=== PATIENT | male | born 1960 | race Caucasian/White ===

== ENCOUNTER 2021-07-17 12:48 | Emergency (ER) | payer MEDICAID ==
[~2021-07-17] VITALS: Ht 172.7 cm; Wt 106.8 kg
[2021-07-17 13:21] VITALS: BP 129/72
[2021-07-17] MEDS ORDERED: CEPH-585 PO (16:30)
== END 2021-07-17 17:09 | disposition home or self-care (01) ==
LOC: ER 12:51
DX: S91.101D Unspecified open wound of right great toe without damage to nail, subsequent encounter (principal); V98.8XXD Other specified transport accidents, subsequent encounter; F17.210 Nicotine dependence, cigarettes, uncomplicated
CPT/HCPCS: 73660; 99283

== ENCOUNTER 2021-09-18 15:08 | Emergency (ER) | payer MEDICAID ==
[~2021-09-18] VITALS: Ht 172.7 cm; Wt 106.0 kg
[~2021-09-18 15:08] MED LIST: CEPH-585 PO
[2021-09-18 15:14] VITALS: BP 118/79
== END 2021-09-18 15:50 | disposition home or self-care (01) ==
LOC: ER 15:08
DX: S91.101A Unspecified open wound of right great toe without damage to nail, initial encounter (principal); B35.1 Tinea unguium; G62.9 Polyneuropathy, unspecified; Z79.2 Long term (current) use of antibiotics; Z88.2 Allergy status to sulfonamides; X58.XXXA Exposure to other specified factors, initial encounter; Y93.89 Activity, other specified; Y92.89 Other specified places as the place of occurrence of the external cause; Y99.8 Other external cause status
CPT/HCPCS: 99281

== ENCOUNTER 2021-11-19 12:54 | Emergency (ER) | payer MEDICAID | END 2021-11-19 14:20 | disposition left against medical advice (07) | LOC: ER 12:58 | DX: Z02.89 Encounter for other administrative examinations (principal); Z53.21 Procedure and treatment not carried out due to patient leaving prior to being seen by health care provider ==